=== PATIENT | female | born 1990 | race Caucasian/White ===

== ENCOUNTER 2024-08-29 08:36 | Outpatient (CLI) | payer OTHER, SELFPAY ==
--- NOTE | 2024-08-29 08:45 | CRLHL7_ITS ---
For Patients: As a result of the Century Cures Act, medical imaging exams and procedure reports are released immediately into your electronic medical record. You may view this report before your referring provider. If you have questions, please contact your health care provider. INDICATION: First trimester scan, establish dates. COMPARISON: None. TECHNIQUE: Real-time germain-scale imaging of the pelvis was performed. FINDINGS: Sonographic imaging demonstrates a single living intrauterine gestation. The embryo demonstrates a regular cardiac rate measuring 165 beats per minute. The embryo`s crown-rump length measurement of 4.7 cm corresponds to a gestational age of 11 weeks 3 days with a sonographic due date of 03/17/2025. There is a normal-appearing yolk sac. There are no gross abnormalities noted within the embryo at this early state of development. The gestational sac has a normal appearance. There is no evidence of a perigestational hemorrhage. The amount of fluid within the sac appears appropriate for gestational age. The cervix is closed. The myometrium appears normal. The ovaries are of normal size. Corpus luteal cyst right ovary. There are no suspicious fluid collections noted in the cul-de-sac. IMPRESSION: Normal first trimester OB ultrasound exam. Gestational age calculated at 11 weeks 3 days with a sonographic due date of 03/17/2025. Dictated by Darnell Arredondo MD @ 08/29/2024 12:11:54 PM (Electronically Signed)
== END 2024-08-29 08:37 | disposition home or self-care (01) ==
LOC: US 08:37
PROVIDERS: PCP Family Medicine; Visit Provider Advanced Practice Midwife
DX: Z34.91 Encounter for supervision of normal pregnancy, unspecified, first trimester (principal); Z3A.11 11 weeks gestation of pregnancy
CPT/HCPCS: 76801; 86703; 86706; 86803; 86850; 86900; 86901; 87086; 87340

== ENCOUNTER 2024-08-29 09:38 | Outpatient (CLI) | payer OTHER, SELFPAY | END 2024-08-29 09:39 | disposition home or self-care (01) | PROVIDERS: PCP Family Medicine; Visit Provider Advanced Practice Midwife | DX: Z34.91 Encounter for supervision of normal pregnancy, unspecified, first trimester (principal); Z3A.10 10 weeks gestation of pregnancy | CPT/HCPCS: 86592; 86703; 86704; 86706; 86762; 86787; 86803; 86850; 86900; 86901; 87086; 87340; 87491; 87591 ==

== ENCOUNTER 2024-08-31 17:53 | Emergency (ER) | payer OTHER, SELFPAY ==
[2024-08-31 17:57] VITALS: BP 104/69; PULSE 90; RESP 18; TEMP 37.1; O2SAT 98; BMI 18.4
--- NOTE | 2024-08-31 18:08 | CRLHL7_ITS ---
For Patients: As a result of the Cures Act, medical imaging exams and procedure reports are released immediately into your electronic medical record. You may view this report before your referring provider. If you have questions, please contact your health care provider. INDICATION: Vaginal bleeding. Positive test. COMPARISON: Pelvic ultrasound 08/29/2024. TECHNIQUE: Real-time germain-scale imaging of the pelvis was performed transabdominally and endovaginally. FINDINGS: A single intrauterine is identified with positive heart tones at a rate of 163 beats per minute. The crown-rump length measures 49 mm, giving an estimated gestation age of 11 weeks 5 days and an estimated due date of 03/17/2025. This is consistent with clinical dates. There is a normal appearing yolk sac and gestational sac. There are 2 subchorionic hemorrhages measuring 4.4 x 1.7 x 6.2 cm and 4.3 x 2.2 x 1 cm A corpus luteum is noted on the right. The left ovary is not visualized. There is no pelvic free fluid. IMPRESSION: 1. Single intrauterine with heart tones at a rate of 163 beats per minute. 2. Two subchorionic hemorrhages with measurements provided above. Dictated by Chichi Wagner MD @ 08/31/2024 8:24:31 PM (Electronically Signed)
--- NOTE | 2024-08-31 18:09 | ED.PREGNANCY ---
HPI - General Time Seen by Provider: 18:09 Date Seen: 08/31/24 Chief complaint: Vaginal Bleeding Stated complaint: 10 weeks gestation, cramping bleeding Time Seen by Provider: 08/31/24 18:06 Source: patient and RN notes reviewed Mode of arrival: ambulatory Limitations: no limitations History of Present Illness HPI Narrative: This 33-year-old female is coming in with dark vaginal bleeding that started today while just sitting on the couch. She had an ultrasound done on August 29 with her initial OB, confirming dates. This ultrasound showed normal 1st trimester OB examination, gestational age was calculated at 11 weeks 3 days with an ultrasound due date of 03/17/2025. There were no concerning abnormalities. After the ultrasound on evening patient started having some fluid with pinkish discoloration. By Monday there was just a little darkish brownish discoloration. She has had no fevers or chills, no concerning vaginal discharge outside of this. There has been no intercourse. She has 3 other living children. She does feel some mild lower abdominal cramping with this but it is nothing significant. She is O-positive, antibody screen negative. MD Complaint: abdominal pain Patient : Yes Expected Date of Delivery: 03/17/25 Related Data : 4 Para: 3 Home Medications ?Medication ?Instructions ?Recorded ?Confirmed vitamins no.119-iron 1 tab PO DAILY 08/29/24 08/31/24 fumarate 29 mg-folic acid 1 mg tablet Allergies Allergy/AdvReac Type Severity Reaction Status Date / Time no drug allergies Allergy Mild Uncoded 08/29/24 09:43 Review of Systems Status of ROS: Reports: 6 or more systems reviewed and unremarkable except as noted in History and below [facility] Medical History (Updated 08/31/24 @ 20:39 by Aniya Gutierrez MD) History of incontinence of feces ?Z87.898 - Personal history of other specified conditions (ICD-10) Surgical History (Updated 08/30/24 @ 08:43 by Darleen Gonzalez CNM) History of vacuum extraction assisted delivery ?Z87.59 - Personal history of other complications of , childbirth and the puerperium (ICD-10) H/O wisdom tooth extraction ?K08.409 - Partial loss of teeth, unspecified cause, unspecified class (ICD-10) Family History (Updated 08/29/24 @ 10:06 by Darleen Gonzalez CNM) Maternal Grandmother Diabetes Social History (Updated 08/30/24 @ 08:32 by Darleen Gonzalez CNM) Narrative: SOCIAL Education: bachelors in education 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 Lives with: and kids Pets: 2 dogs, outdoor cats Abuse: Denies past/present Special Diet: Denies Ok with a blood transfusion: yes Culture or adventist beliefs: denies RISK FACTORS Exercise Times/wk: stretching, coaching, walking Depression/Anxiety: denies SANDY: 0 PHQ 9: 0 Seat Belt Use: Routinely Smoking: Denies past/present Alcohol/day: Denies while , rare before Caffeine: 1 cup per day Drug Use: Denies past/present Chicken Pox: Yes as a child and immunized MRSA: Denies What is your current living situation?: I presently have a place to live Problems where you live: no known problems In the past 12 months, utilities in danger of being shut off: no In past 12 months, lack of transportation kept you from medical appts, meetings, work, or getting things needed for daily living: no In the past 12 mos, have been you worried that your food would run out before you had money to buy more?: never true In the past 12 mos, the food you bought just didn't last and you didn't have money to buy more?: never true Smoking Status: Never smoker How often do you have a drink containing alcohol: never How often do you have six or more drinks on one occasion: Never AUDIT-C Alcohol total score: 0 Non-prescribed substance use: denies use How often does anyone, including family, friends and others, physically hurt you: never How often does anyone, including family, friends and others, insult or talk down to you: never How often does anyone, including family, friends and others, threaten you with harm: never How often does anyone, including family, friends and others, scream or curse at you: never Little interest or pleasure in doing things: not at all Feeling down, depressed, or hopeless: not at all Exam Const: Vital Signs, click to edit/add: Vital Signs - 24 hr 08/31/24 17:57 08/31/24 19:16 Temperature 98.8 F Pulse Rate [Pulse Oximeter] 90 74 Respiratory Rate 18 16 Blood Pressure [[facility]] 104/69 103/64 Pulse Oximetry 98 98 Oxygen Delivery Me thod Room Air Room Air Daniela is a 33-year-old female that is alert, interactive, no apparent distress but mildly anxious. Sclera clear, conjugate gaze, face atraumatic. Lungs are clear, good air entry, no wheezing or crackles. CV regular rate and rhythm no murmur. Abdomen is soft, nondistended, mild suprapubic tenderness without rebound or guarding, no organomegaly or masses. Skin visualized without rash. Patient was ambulatory into the ED of her own accord. Documenting provider has reviewed patient's vital signs: yes Course Course ED Course: We will obtain CBC for baseline hemoglobin, patient is to let us know if she has increased bleeding. She has a pad on right now and has not felt anything. She notes it is primarily coming when she gets up or wipes after using the bathroom. We will repeat an ultrasound. Reevaluation(s) Time of Reevaluation #1: 20:34 Reevaluation #1: Reviewed ultrasound report with patient, she has 2 small subchorionic hemorrhages. We discussed signs and symptoms of heavy bleeding and need for return. Otherwise, follow up with OB next week. Vital Signs Vital signs: Initial Vital Signs Temperature 98.8 F 08/31/24 17:57 Temperature Source Temporal Artery Scan 08/31/24 17:57 Pulse Rate 90 08/31/24 17:57 Respiratory Rate 18 08/31/24 17:57 Blood Pressure 104/69 08/31/24 17:57 Blood Pressure Mean 80 08/31/24 17:57 Pulse Oximetry 98 08/31/24 17:57 Oxygen Delivery Method Room Air 08/31/24 17:57 Vital Signs Temperature 98.8 F 08/31/24 17:57 Pulse Rate 90 08/31/24 17:57 Respiratory Rate 18 08/31/24 17:57 Blood Pressure 104/69 08/31/24 17:57 Pulse Oximetry 98 08/31/24 17:57 Oxygen Delivery Method Room Air 08/31/24 17:57 Temperature 98.8 F 08/31/24 17:57 Pulse Rate 74 10/12/24 19:16 Respiratory Rate 16 08/31/24 19:16 Blood Pressure 103/64 08/31/24 19:16 Pulse Oximetry 98 08/31/24 19:16 Oxygen Delivery Method Room Air 08/31/24 19:16 Medications Administered Medications: Discontinued Medications Generic Name Dose Route Start Last Admin Trade Name Vitaliy PRN Reason Stop Dose Admin Acetaminophen 1,000 mg 08/31/24 19:40 08/31/24 19:43 Acetaminophen 500 Mg Tablet PO 08/31/24 19:41 1,000 mg ONCE ONE Administration MDM - OB/Uterine Contractions Lab Data Attestation: I reviewed the patient's lab results. Lab results narrative: Hemoglobin was 13.2 on 08/29/2024. Labs: Lab Results 08/31/24 Range/Units 18:23 WBC 6.36 (4.50-11.00) K/uL RBC 4.47 (4.00-5.20) m/uL Hgb 11.9 L (12.0-16.0) gm/dL Hct 36.4 (33.0-51.0) % MCV 81 (80-100) fL MCH 27 (26-34) pg MCHC 33 (32-36) gm/dL RDW Coeff of Gianna 13.0 (11.5-15.5) % Plt Count 182 (140-440) K/uL Neut % (Auto) 69.8 (42.0-72.0) % Lymph % (Auto) 15.3 L (20-44) % Mingo % (Auto) 12.1 H (0.0-11.0) % Eos % (Auto) 1.9 (0.0-7.0) % Baso % (Auto) 0.6 (0.0-3.0) % Neut # (Auto) 4.44 (1.7-7.0) K/uL Lymph # (Auto) 1.00 (0.90-2.90) K/uL Mingo # (Auto) 0.80 (0.00-0.90) K/UL Eos # (Auto) 0.12 (0.00-0.50) K/uL Baso # (Auto) 0.04 (0.00-0.30) K/uL Abs Immat Gran (auto) 0.02 (0.00-0.30) K/uL Imm/Tot Granulo (auto) 0.3 % Discharge Plan Discharge Clinical Impression: Subchorionic hemorrhage in first trimester Patient Disposition: Home, Self-Care Condition: Stable Instructions: Subchorionic Hemorrhage (ED) Additional Instructions: Please call OB clinic next week to get a follow-up visit. In the meantime, nothing in the vagina. If you develop heavy bleeding as reviewed, please return to the ER for further evaluation. Recommend no strenuous/limited activity until further advised by OB. Activity Level: No strenuous activity Prescriptions: No Action PNV 119-iron fum-folic acid 29 mg iron- 1 mg tablet 1 tab PO DAILY Follow Up/Referrals: Karena Caraballo MD [Primary Care Provider] - Stand Alone Forms: [employer] Info Instructions
[2024-08-31 18:29] LABS: Basophils Absolute Auto 0.04 K/uL (0.00-0.30); Basophils Percent Auto 0.6 % (0.0-3.0); Eosinophils Absolute Auto 0.12 K/uL (0.00-0.50); Eosinophils Percent Auto 1.9 % (0.0-7.0); Hematocrit 36.4 % (33.0-51.0); Hemoglobin* 11.9 gm/dL (12.0-16.0); Immature Granulocytes Abs Auto 0.02 K/uL (0.00-0.30); Immature Granulocytes Pct Auto 0.3 %; Lymphocytes Percent Auto 15.3 % (20-44); Mean Corpuscular HGB Conc 33 gm/dL (32-36); Mean Corpuscular Hemoglobin 27 pg (26-34); Mean Corpuscular Volume 81 fL (80-100); Monocytes Percent Auto 12.1 % (0.0-11.0); Neutrophils Absolute Auto 4.44 K/uL (1.7-7.0); Neutrophils Percent Auto 69.8 % (42.0-72.0); Platelet Count* 182 K/uL (140-440); Red Blood Count 4.47 m/uL (4.00-5.20); White Blood Count* 6.36 K/uL (4.50-11.00)
[2024-08-31 18:31] LABS: Slide Review Reflex No
[2024-08-31 19:16] VITALS: BP 103/64; PULSE 74; RESP 16; O2SAT 98
[2024-08-31] MEDS: ACETAMINOPHEN 500 MG TABLET 1000 MG PO (19:43)
[2024-08-31 20:46] VITALS: BP 110/70; PULSE 71; RESP 16; TEMP 37.1; O2SAT 98
== END 2024-08-31 20:46 | disposition home or self-care (01) ==
PROVIDERS: Emergency Provider Family Medicine; PCP Family Medicine
DX: O20.8 Other hemorrhage in early pregnancy (principal); Z3A.10 10 weeks gestation of pregnancy
CPT/HCPCS: 36415; 76815; 85025; 99283; 99284; A9270

== ENCOUNTER 2024-11-05 10:55 | Outpatient (CLI) | payer OTHER, SELFPAY ==
--- NOTE | 2024-11-05 11:15 | CRLHL7_ITS ---
For Patients: As a result of the 21st Century Cures Act, medical imaging exams and procedure reports are released immediately into your electronic medical record. You may view this report before your referring provider. If you have questions, please contact your health care provider. OB ULTRASOUND CLINICAL HISTORY: Anatomy survey. COMPARISON: 08/31/2024. BEN by US: 03/23/2025. GA: 20 w, 2 d. FINDINGS: position: Multiple positions. Cervix: Visualized. Technique: Transabdominal. Length of closed cervix: 3.8 cm. Placenta/cord: Anterior. Technique: Transabdominal. Placenta tip to internal OS: 12.1 cm. Umbilical Cord: 3-vessel cord. Placenta insertion: Central. Amniotic Fluid: 4.9 cm SDP (greater than/equal to: 2- less than 8 cm). SURVEY: Observed Structures Cerebellum: Yes. 2.2cm; 22 w 1 d. Cisterna Magna: Yes. 2.9 mm. Nuchal Fold: Yes. 4.1 mm. Lateral Ventricle: Yes. 6.3 mm. CSP: Yes. Midline Falx: Yes. Choroid Plexus: Yes. Spine: Yes. Stomach: Yes. Abd Cord Insertion: Yes. Urinary Bladder: Yes. Kidneys: Yes. Diaphragm: Yes. Nose/lips: Yes. Orbital view: Yes. Profile: Yes. Upper Extremities: Yes. Lower Extremities: Yes. Hands: Yes. Feet: Yes. Four-Chamber Heart: Yes. LVOT: Yes. RVOT: Yes. 3VV: Yes. 3VTV: Yes. BPD: 4.8 cm. 20 w 4 d, 59.5%. HC: 18.6 cm. 20 w 6 d, 69.9%. AC: 17.4 cm. 22 w 2 d, 94.4%. FL: 3.2 cm. 19 w 6 d, 28.2%. FL/AC: 18.3%. HC/AC Ratio: 1.07. Heart rate: 163 beats per minute. age by this US: 21 w 1 d. BEN by this US: 03/17/2025. EFW: 403.8 g. Weight: 14 oz. Percentile by BEN: 89.0%. IMPRESSION: 1. Estimated weight is at the 89th percentile. Abdominal circumference 94th percentile. 2. Normal anatomic survey. Az Castillo M.D. Body/Diagnostic Radiologist [email or web address] SHANE/nakul mota/Dictated by: Az Castillo MD @ 11/06/2024 9:09:00 AM (Electronically Signed)
== END 2024-11-05 10:56 | disposition home or self-care (01) ==
LOC: US 10:55
PROVIDERS: PCP Family Medicine; Visit Provider Advanced Practice Midwife
DX: Z34.92 Encounter for supervision of normal pregnancy, unspecified, second trimester (principal); Z3A.20 20 weeks gestation of pregnancy
CPT/HCPCS: 76805

== ENCOUNTER 2025-01-02 14:06 | Outpatient (CLI) | payer OTHER, SELFPAY | END 2025-01-02 14:07 | disposition home or self-care (01) | LOC: NFLDREF 14:10 | PROVIDERS: PCP Family Medicine; Visit Provider Advanced Practice Midwife | DX: Z34.93 Encounter for supervision of normal pregnancy, unspecified, third trimester (principal); Z3A.28 28 weeks gestation of pregnancy | CPT/HCPCS: 86592 ==

== ENCOUNTER 2025-01-07 08:29 | Outpatient (CLI) | payer OTHER, SELFPAY | END 2025-01-07 08:30 | disposition home or self-care (01) | LOC: NFLDREF 01-11 02:34 | PROVIDERS: PCP Family Medicine; Referring Provider Family Medicine; Visit Provider Advanced Practice Midwife | DX: R73.09 Other abnormal glucose (principal) | CPT/HCPCS: 82951; 82952 ==

== ENCOUNTER 2025-01-14 23:45 | Outpatient (CLI) | payer OTHER, SELFPAY ==
[2025-01-14 23:59] VITALS: BP 105/60; PULSE 76; PULSE 77; TEMP 36.6; O2SAT 98
[2025-01-15 00:23] LABS: Appearance Urine Cloudy (Clear); Bilirubin Urine Negative (Negative); Blood Urine 2+ (Negative); Color Urine Yellow (Yellow); Glucose Urine Negative (Negative); Ketones Urine Trace (Negative); Leukocyte Esterase Urine Negative (Negative); Nitrite Urine Negative (Negative); Protein Urine Negative (Negative); Urobilinogen Urine 0.2 (0.2-1.0)
[2025-01-15 00:32] LABS: Amorphous Sediment Urine Many; Bacteria Urine Moderate; Squamous Epithelial Cell Urine Few (None-Few)
--- NOTE | 2025-01-15 00:56 | P.OBLDTN_ITS ---
OB - Triage/Final Diagnosis Visit Information Date Seen: 01/15/25 Date of evaluation: 01/15/25 Narrative: Daniela is a 34 year old 4 para 3 at 30.3 weeks gestation by first trimester ultrasound, who presents with increasing pelvic pressure and pain. She noticed symptoms starting around 1200pm starting with some sharp right SI joint pain and then progressively over the evening this increased in intensity along with low back pain and worsening pelvic pressure. On arrival she had so much discomfort that she needed to be brought to the unit in a wheelchair. By the time she was seen by myself she was more comfortable and not complaining of pain, then had another episode of pain causing her to feel shaky with increased pelvic pressure this resolved in approximately 20 minutes.. She denies vaginal discharge or irritation, and has had no bleeding. She is oswaldo on the monitor and they palpate mild. Cervix is closed and not effaced. After an IV fluid bolus she was able to void a large amount and contractions have now spaced. Her pain has resolved and she reports feeling so much better. Initial report of kidneys and bladder from [facility] shows right hydronephrosis and debris in the bladder. During exam she had a large amount of urine in the bladder so got up and voided. Then the hydronephrosis on the right was less and bladder debris was smaller as well. She scanned approximately 600ml in bladder prior to void and approximately 90ml after void. Reviewed reasons to return with patient, follow up in clinic for routine OB visit tomorrow. Will plan to treat for UTI until culture results back. Encouraged increased oral hydration at home, may take Tylenol for pain. Reason for evaluation: threatened labor Evaluation Cervical dilation (cm): 0 Cervical effacement (%): 0 Laboratory results: Laboratory Tests 01/15/25 01/15/25 Range/Units 00:40 00:10 Urine Color Yellow (Yellow) Urine Appearance Cloudy A (Clear) Urine pH 7.0 (5.0-8.5) Ur Specific [place] 1.020 (1.000-1.030) Urine Protein Negative (Negative) Urine Glucose (UA) Negative (Negative) Urine Ketones Trace A (Negative) Urine Blood 2+ A (Negative) Urine Nitrite Negative (Negative) Urine Bilirubin Negative (Negative) Urine Urobilinogen 0.2 (0.2-1.0) Ur Leukocyte Esterase Negative (Negative) Urine RBC 10-25 A (0-2) Urine WBC 2-5 (0-5) Ur Squamous Epith Cells Few (None-Few) Amorphous Sediment Many A (None) Urine Bacteria Moderate A (None) Vaginal Trichomonas Pending Vaginal Yeast Pending Vaginal Clue Cells Pending Fibronectin Pending Vital signs: Vital Signs - 24 hr 01/14/25 23:59 01/14/25 23:59 Temperature 97.9 F Pulse Rate 76 Blood Pressure 105/60 Pulse Oximetry 98 Fetus (Single) Heart Rate Baseline: 140 [facility] Variability: Moderate (6-25) Monitor Accelerations: Present Monitor Decelerations: None Station: -3 Final Diagnosis (1) Kidney stone complicating : Status: Acute
[2025-01-15 01:01] LABS: Clue Cells <20% Clue Cells Seen (None Seen); Trichomonas No Trichomonas Seen (None Seen); Yeast No Yeast Seen (None Seen)
[2025-01-15 01:27] LABS: Fetal Fibronectin* Negative (Negative)
[2025-01-15 01:55] LABS: Albumin* 3.8 g/dL (3.3-5.0); Chloride* 102 mmol/L (96-114); Sodium* 134 mmol/L (135-149)
[2025-01-15] MEDS: ACETAMINOPHEN 500 MG TABLET 1000 MG PO (01:55)
[2025-01-15] MEDS: LACTATED RINGERS 1000 ML 1,000 ML IV (01:55)
[2025-01-15 01:56] LABS: Potassium* 3.6 mmol/L (3.6-5.1)
[2025-01-15 01:58] LABS: Alkaline Phosphatase* 115 U/L (40-150); Anion Gap 10 mEq/L (7-15); Aspartate Amino Transferase* 17 U/L (12-35); Bilirubin Total* 0.3 mg/dL (0.1-1.5); Blood Urea Nitrogen* 11 mg/dL (5-24); Carbon Dioxide* 22 mmol/L (20-32); Creatinine* 0.5 mg/dL (0.5-1.5); Estimated Glomerular Filt Rate 128 ml/min; Glucose* 102 mg/dL (60-115); Total Protein* 7.2 g/dL (6.0-8.3)
[2025-01-15 01:59] LABS: Alanine Aminotransferase* 12 U/L (4-35)
[2025-01-15] MEDS: NITROFURANTOIN MONOHYD MACRO 100 MG CAPSULE PO (02:31)
--- NOTE | 2025-01-15 03:44 | PC.OBNST ---
NST Note NST Note Start: 01/14/25 23:54 Freq: ONCE Status: Active Protocol: Document 01/15/25 03:42 TEREZAIGOR (Rec: 01/15/25 03:44 ALBERT Desktop) NST Note 4 Para (# of births) 3 EDC 03/23/25 Gestational Age In Weeks & Days 30 Weeks & 3 Days Patient Presented with Complaint(s) of Contractions/cramping,Pain If Pain, describe location pelvic pressure, low back/hip pain Reactive Yes Appropriate for Gestational Age Yes SHUBHAM hCi, RN Date 01/15/25 Reactive Yes Appropriate for Gestational Age Yes SHUBHAM Mensah RN Date 01/15/25 OB NST charge Yes Complete NST Note via Write Note Yes The provider's electronic signature indicates the NST is reactive/appropriate for gestational age. *Note to provider: If an addendum is required, open the patient's chart and click on the note under the Nurse/Allied Health tab.
== END 2025-01-15 03:40 | disposition home or self-care (01) ==
LOC: OB OUT 23:45 → OB 23:46
PROVIDERS: PCP Family Medicine; Visit Provider Advanced Practice Midwife
DX: O99.891 Other specified diseases and conditions complicating pregnancy (principal); N20.0 Calculus of kidney; Z3A.34 34 weeks gestation of pregnancy
CPT/HCPCS: 36415; 59025; 76770; 80053; 81001; 84112; 87086; 87210; G0463; A9270; J7120

== ENCOUNTER 2025-01-16 07:33 | Observation (INO) | payer OTHER, SELFPAY ==
--- OUTSIDE RECORDS SUMMARY | 2025-01-16 07:36 | XMS_ITS | Clinical Summary ---
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 Role Phone Karena Caraballo MD Primary Care Provi simi Social History Tobacco Use Types Packs/Day Years Used Date Smoking Tobacco: Never Assessed Comments Unknown Sex and Gender Information Value Date Recorded Sex Assigned at Not on file Legal Sex Female 11:39 AM CDT Gender Identity Not on file Sexual Orientation Not on file Plan of Treatment Not on file Insurance [facility] Care Teams Spar Machine Operator Helper Relationship Specialty Start Date End Date Karena Caraballo MD [address] [place] [id number] PCP - General Family Practice 02/10/22
[2025-01-16 07:42] VITALS: BP 104/71; PULSE 88; RESP 20; TEMP 36.8; O2SAT 99; BMI 21.6
[2025-01-16 08:03] LABS: Bilirubin Urine Negative (Negative); Blood Urine Negative (Negative); Color Urine Yellow (Yellow); Glucose Urine Negative (Negative); Ketones Urine 1+ (Negative); Leukocyte Esterase Urine 1+ (Negative); Nitrite Urine Negative (Negative); Protein Urine 1+ (Negative); Urobilinogen Urine 0.2 (0.2-1.0); pH Urine 8.5 (5.0-8.5)
[2025-01-16 08:09] LABS: Appearance Urine Slightly Cloudy (Clear)
[2025-01-16 08:10] LABS: Bacteria Urine Moderate; RBC Urine 0-2 (0-2); Squamous Epithelial Cell Urine Many (None-Few)
--- NOTE | 2025-01-16 08:15 | ED.GENADULT ---
HPI - General Adult General Date Seen: 01/16/25 Chief complaint: Flank Pain Stated complaint: 30 weeks , kidney stone pain Time Seen by Provider: 01/16/25 08:07 History of Present Illness HPI narrative: Patient is a 34-year-old woman who is at about 30 and half weeks. Seen yesterday in women's health for right low back pain urinary urgency and nausea. She had a workup including an ultrasound which showed hydronephrosis and some debris in the bladder. Urinalysis yesterday showed 10-25 red cells and some bacteria but no significant white blood cells. Cultures pending. She had fluids and felt improved. Pain has returned and is more severe associated with nausea few episodes of vomiting and some chills although no fevers. She feels like the pain is setting off contractions as well. No bleeding. Related Data Home Medications ?Medication ?Instructions ?Recorded ?Confirmed vitamins no.119-iron 1 tab PO DAILY 08/29/24 01/16/25 fumarate 29 mg-folic acid 1 mg tablet ferrous sulfate 1 tab PO .Twice weekly 01/15/25 01/16/25 Previous Rx's ?Medication ?Instructions ?Recorded nitrofurantoin 100 mg PO Q12H 5 days #10 caps 01/15/25 monohydrate/macrocrystals 100 mg capsule (Macrobid) Allergies Allergy/AdvReac Type Severity Reaction Status Date / Time No Known Drug Allergies Allergy Verified 01/16/25 07:49 Review of Systems Status of ROS: Reports: 6 or more systems reviewed and unremarkable except as noted in History and below [facility] Medical History History of incontinence of feces ?Z87.898 - Personal history of other specified conditions (ICD-10) Surgical History History of vacuum extraction assisted delivery ?Z87.59 - Personal history of other complications of , childbirth and the puerperium (ICD-10) H/O wisdom tooth extraction ?K08.409 - Partial loss of teeth, unspecified cause, unspecified class (ICD-10) Family History Maternal Grandmother Diabetes Social History Narrative: SOCIAL Education: bachelors in education 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[employer] , 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 Lives with: and kids Pets: 2 dogs, outdoor cats Abuse: Denies past/present Special Diet: Denies Ok with a blood transfusion: yes Culture or methodist beliefs: denies RISK FACTORS Exercise Times/wk: stretching, coaching, walking Depression/Anxiety: denies SANDY: 0 PHQ 9: 0 Seat Belt Use: Routinely Smoking: Denies past/present Alcohol/day: Denies while , rare before Caffeine: 1 cup per day Drug Use: Denies past/present Chicken Pox: Yes as a child and immunized MRSA: Denies What is your current living situation?: I presently have a place to live Problems where you live: no known problems In the past 12 months, utilities in danger of being shut off: no In past 12 months, lack of transportation kept you from medical appts, meetings, work, or getting things needed for daily living: no In the past 12 mos, have been you worried that your food would run out before you had money to buy more?: never true In the past 12 mos, the food you bought just didn't last and you didn't have money to buy more?: never true Smoking Status: Never smoker How often do you have a drink containing alcohol: never How often do you have six or more drinks on one occasion: Never AUDIT-C Alcohol total score: 0 Non-prescribed substance use: denies use How often does anyone, including family, friends and others, physically hurt you: never How often does anyone, including family, friends and others, insult or talk down to you: never How often does anyone, including family, friends and others, threaten you with harm: never How often does anyone, including family, friends and others, scream or curse at you: never Exam Narrative: Exam Narrative: Vital signs as noted above. In general, an alert, well-appearing woman. She looks uncomfortable. Head: Normocephalic, atraumatic. Eyes: Pupils are equal reactive. Extraocular movements are full. Conjunctivae are normal. ENT: Mucous membranes are moist. Throat is normal. Neck: Supple without lymphadenopathy. Heart: Regular rate and rhythm. No murmur or rub. Lungs: Clear bilaterally. No increased work of breathing, crackles or wheezes. Abdomen: Soft and nontender. Gravid. Extremities: Well perfused. No edema. No calf tenderness. Pulses intact. Neurologic: Patient is alert and oriented to person and place. Speech is fluent. Face is symmetric. Moves all extremities equally. Affect: Normal. Skin: Warm and dry. Well perfused. Const: Vital Signs, click to edit/add: Vital Signs - 24 hr 01/16/25 07:42 01/16/25 09:54 Temperature 98.2 F 98.9 F Pulse Rate [Pulse Oximeter] 88 72 Respiratory Rate 20 18 Blood Pressure [Ri ght Upper Arm] 104/71 116/72 Pulse Oximetry 99 98 Oxygen Delivery Me thod Room Air Room Air Course Course ED Course: At this point I think it makes sense to do CT scan and see if she has hydronephrosis secondary to a kidney stone or related simply to . Urine culture is pending, she does have urinary urgency but at this point no other clear indicators of infection. She is afebrile, vital signs are normal. Blood work and repeat UA pending, I do not think she needs urgent treatment for sepsis, consider pyelonephritis, kidney stone, renal colic from hydronephrosis, labor, appendicitis, among others. Patient was evaluated by [facility] with NST, cervical check, findings are reassuring. Urinalysis here today does show 10-25 white cells, no significant red cells today. White blood cell count in the serum is mildly elevated at 12.8. Metabolic panel is notable for CO2 of 19. LFTs are normal. Lipase is normal. CT scan by my review showed fairly significant hydronephrosis on the right and a 5 mm stone near the UVJ. Final radiology read discussed with the Radiology who agrees. She does have some other stones in the kidneys, no other significant findings. Case discussed with Dr. Quintero, was on-call for Urology at the [facility]. He feels that in the absence of fever, that for now management here with IV antibiotics, pain control, hydration and trending of labs would be appropriate. He would like to avoid a procedure if possible given her . Discussed briefly with the nurse deicer inspector pneumatic, also discussed with the hospitalist service. Patient will be admitted to the hospitalist service with deicer inspector pneumatic to consult. She did have ongoing pain despite the morphine, had ongoing vomiting as well so she has now had some Dilaudid as well as Reglan, will keep working on getting her pain under better control. Vital signs remain reassuring. Vital Signs Vital signs: Initial Vital Signs Temperature 98.2 F 01/16/25 07:42 Temperature Source Temporal Artery Scan 01/16/25 07:42 Pulse Rate 88 01/16/25 07:42 Respiratory Rate 20 01/16/25 07:42 Blood Pressure 104/71 01/16/25 07:42 Blood Pressure Mean 82 01/16/25 07:42 Blood Pressure Position Sitting 01/16/25 07:42 Pulse Oximetry 99 01/16/25 07:42 Oxygen Delivery Method Room Air 01/16/25 07:42 Vital Signs Temperature 98.2 F 01/16/25 07:42 Pulse Rate 88 01/16/25 07:42 Respiratory Rate 20 01/16/25 07:42 Blood Pressure 104/71 01/16/25 07:42 Pulse Oximetry 99 01/16/25 07:42 Oxygen Delivery Method Room Air 01/16/25 07:42 Temperature 98.9 F 01/16/25 09:54 Pulse Rate 72 01/16/25 09:54 Respiratory Rate 18 01/16/25 09:54 Blood Pressure 116/72 01/16/25 09:54 Pulse Oximetry 98 01/16/25 09:54 Oxygen Delivery Method Room Air 01/16/25 09:54 Medications Administered Medications: Discontinued Medications Generic Name Dose Route Start Last Admin Trade Name Freq PRN Reason Stop Dose Admin Hydromorphone HCl 0.5 mg 01/16/25 09:57 01/16/25 11:03 Hydromorphone 0.5 Mg/0.5 Ml Inj IVP 01/16/25 09:58 0.5 mg ONCE ONE Administration Sodium Chloride 500 mls @ 500 mls/hr 01/16/25 08:12 01/16/25 10:06 0.9 % Sodium Chloride 500 Ml IV 01/16/25 09:11 Infused .Q1H ONE Infusion Metoclopramide HCl 10 mg/ 102 mls @ 306 mls/hr 01/16/25 09:57 01/16/25 11:07 Sodium Chloride IVPB 01/16/25 09:58 306 mls/hr ONCE ONE Administration Morphine Sulfate 4 mg 01/16/25 08:12 01/16/25 08:34 Morphine 4 Mg/Ml Inj IVP 01/16/25 08:13 4 mg ONCE ONE Administration Ondansetron HCl 4 mg 01/16/25 08:12 01/16/25 08:33 Ondansetron 2 Mg/Ml Inj IVP 01/16/25 08:13 4 mg ONCE ONE Administration Medical Decision Making Lab Data Labs: Lab Results 01/16/25 01/16/25 Range/Units 07:53 08:21 WBC 12.79 H (4.50-11.00) K/uL RBC 4.14 (4.00-5.20) m/uL Hgb 10.8 L (12.0-16.0) gm/dL Hct 33.6 (33.0-51.0) % MCV 81 (80-100) fL MCH 26 (26-34) pg MCHC 32 (32-36) gm/dL RDW Coeff of Gianna 12.9 (11.5-15.5) % Plt Count 150 (140-440) K/uL Neut % (Auto) 83.3 H (42.0-72.0) % Lymph % (Auto) 9.7 L (20-44) % [place] % (Auto) 5.4 (0.0-11.0) % Eos % (Auto) 0.3 (0.0-7.0) % Baso % (Auto) 0.4 (0.0-3.0) % Neut # (Auto) 10.70 H (1.7-7.0) K/uL Lymph # (Auto) 1.20 (0.90-2.90) K/uL [place] # (Auto) 0.70 (0.00-0.90) K/UL Eos # (Auto) 0.00 (0.00-0.50) K/uL Baso # (Auto) 0.10 (0.00-0.30) K/uL Abs Immat Gran (auto) 0.10 (0.00-0.30) K/uL Imm/Tot Granulo (auto) 0.9 % Sodium 133 L (135-149) mmol/L Potassium 3.8 (3.6-5.1) mmol/L Chloride 103 (96-114) mmol/L Carbon Dioxide 19 L (20-32) mmol/L Anion Gap 11 (7-15) mEq/L BUN 7 (5-24) mg/dL Creatinine 0.5 (0.5-1.5) mg/dL Estimated Creat Clear 139.49 Estimated GFR 128 ml/min Glucose 97 (60-115) mg/dL Calcium 9.0 (8.4-10.6) mg/dL Total Bilirubin 0.3 (0.1-1.5) mg/dL Direct Bilirubin 0.1 (0.0-0.5) mg/dL AST 19 (12-35) U/L ALT 13 (4-35) U/L Alkaline Phosphatase 111 (40-150) U/L Total Protein 7.4 (6.0-8.3) g/dL Albumin 4.0 (3.3-5.0) g/dL Lipase 43 (23-300) U/L Urine Color Yellow (Yellow) Urine Appearance Slightly Cloudy A (Clear) Urine pH 8.5 (5.0-8.5) Ur Specific [place] 1.020 (1.000-1.030) Urine Protein 1+ A (Negative) Urine Glucose (UA) Negative (Negative) Urine Ketones 1+ A (Negative) Urine Blood Negative (Negative) Urine Nitrite Negative (Negative) Urine Bilirubin Negative (Negative) Urine Urobilinogen 0.2 (0.2-1.0) Ur Leukocyte Esterase 1+ A (Negative) Urine RBC 0-2 (0-2) Urine WBC 10-25 A (0-5) Ur Squamous Epith Cells Many A (None-Few) Urine Bacteria Moderate A (None) Imaging Data CT scan - abdomen: Attestation: I have reviewed the pertinent imaging results. Radiologist's impression: Patient: Daniela Barragan MR#: [id number] : 1990 Acct:[id number] Loc: ED Service Date: 01/16/[address]: Ordering Physician: Beatriz Mathew M.D. Date of Service: 01/16/25 Procedure(s): CT abdomen pelvis wo con Accession Number(s): [id number] cc: Beatriz Mathew M.D.; Karena Caraballo M.D.~ For Patients: As a result of the Century Cures Act, medical imaging exams and procedure reports are released immediately into your electronic medical record. You may view this report before your referring provider. If you have questions, please contact your health care provider. INDICATION: Right flank pain. Hydronephrosis and debris in bladder on recent ultrasound. Nausea and vomiting. Thirty weeks . TECHNIQUE: CT abdomen and pelvis acquired without contrast. COMPARISON: Ultrasound 01/15/2025. FINDINGS: Lower chest: Lung bases are clear. No pleural or pericardial effusions. Liver: Unremarkable. Spleen: Unremarkable. Pancreas: Unremarkable. Gallbladder and bile ducts: No calcified stones or biliary ductal dilatation. Kidneys: Moderate to severe right hydroureteronephrosis has increased. There is a 5 mm stone in the distal right ureter near the ureterovesicular junction. No other ureteral stone evident. Additional bilateral nonobstructing nephrolithiasis measuring up to 4 mm on the right. Adrenal glands: Unremarkable. GI tract: No evidence of obstruction or acute appendicitis. The appendix is not discretely identified. No secondary findings to suggest appendicitis. No free air or free fluid. Lymph nodes: No pathologic lymphadenopathy. Vascular structures: Unremarkable. Pelvic Organs: Enlarged uterus with intrauterine in cephalic presentation. No complicating feature evident by CT. Bones: No acute or suspicious osseous abnormality. IMPRESSION: 1. Worsening moderate to severe right hydroureteronephrosis, with 5 mm distal ureteral stone near the ureterovesicular junction. 2. Bilateral nonobstructing nephrolithiasis. 3. Intrauterine in cephalic presentation. No complicating feature evident by CT. Discussed with Dr. Mathew by telephone at 10:20 a.m. on 01/16/2025. Dictated by Aguila Bills MD @ 01/16/2025 10:20:49 AM Please note that all CT scans at this facility use dose modulation, iterative reconstruction, and/or weight-based dosing when appropriate to reduce radiation dose to as low as reasonably achievable. Dictated by: Aguila Bills MD @ 01/16/2025 10:21:25 Discharge Plan Discharge Clinical Impression: Kidney stone complicating Patient Disposition: Admitted As Observation
[2025-01-16 08:28] LABS: Basophils Percent Auto 0.4 % (0.0-3.0); Eosinophils Percent Auto 0.3 % (0.0-7.0); Hematocrit 33.6 % (33.0-51.0); Hemoglobin* 10.8 gm/dL (12.0-16.0); Immature Granulocytes Pct Auto 0.9 %; Lymphocytes Percent Auto 9.7 % (20-44); Mean Corpuscular HGB Conc 32 gm/dL (32-36); Mean Corpuscular Hemoglobin 26 pg (26-34); Mean Corpuscular Volume 81 fL (80-100); Monocytes Percent Auto 5.4 % (0.0-11.0); Neutrophils Percent Auto 83.3 % (42.0-72.0); Platelet Count* 150 K/uL (140-440); RDW Coefficient of Variation % 12.9 % (11.5-15.5); Red Blood Count 4.14 m/uL (4.00-5.20); White Blood Count* 12.79 K/uL (4.50-11.00)
[2025-01-16 08:29] LABS: Slide Review Reflex No
[2025-01-16] MEDS: ONDANSETRON 2 MG/ML inj 4 MG IVP (08:33)
[2025-01-16] MEDS: 0.9 % SODIUM CHLORIDE 500 ML 500 ML IV (08:33)
[2025-01-16] MEDS: MORPHINE 4 MG/ML INJ IVP (08:34)
[2025-01-16 08:40] LABS: Chloride* 103 mmol/L (96-114); Sodium* 133 mmol/L (135-149)
[2025-01-16 08:41] LABS: Potassium* 3.8 mmol/L (3.6-5.1)
[2025-01-16 08:44] LABS: Anion Gap 11 mEq/L (7-15); Aspartate Amino Transferase* 19 U/L (12-35); Bilirubin Direct* 0.1 mg/dL (0.0-0.5); Bilirubin Total* 0.3 mg/dL (0.1-1.5); Blood Urea Nitrogen* 7 mg/dL (5-24); Carbon Dioxide* 19 mmol/L (20-32); Creatinine* 0.5 mg/dL (0.5-1.5); Est. Creatinine Clearance* 139.49; Estimated Glomerular Filt Rate 128 ml/min; Glucose* 97 mg/dL (60-115); Total Protein* 7.4 g/dL (6.0-8.3)
[2025-01-16 08:45] LABS: Alanine Aminotransferase* 13 U/L (4-35); Alkaline Phosphatase* 111 U/L (40-150); Lipase* 43 U/L (23-300)
[2025-01-16 09:54] VITALS: BP 116/72; PULSE 72; RESP 18; TEMP 37.2; O2SAT 98
[2025-01-16] MEDS: HYDROmorphone 0.5 mg/0.5 ml inj IVP ×4 (11:03→21:45)
[2025-01-16] MEDS: METOCLOPRAMIDE HCL 10 MG in 0.9 % SODIUM CHLORIDE 100 ml 100 ML 306 MG IVPB (11:07)
[2025-01-16 11:45] VITALS: BP 112/76; PULSE 69; RESP 18; TEMP 36.8; O2SAT 96; BMI 21.2
--- NOTE | 2025-01-16 11:52 | PM.OBCN1 ---
OB - CN: HPI Date of Consult Date Seen: 01/16/25 Consult date: 01/16/25 Requesting Physician: Dr Henry Primary Care Provider: Karena Caraballo MD Consult Narrative Narrative: The patient is a 34 year old G 4 P 2103 at 34w4d weeks gestation that was admitted to the med/surg unit for pain management for nephrolithiasis. That is being managed by the Hopsitalist. I was asked to consult regarding the and have consulted with Dr Harmon regarding care. has thus far been complicated by anemia, low BMI. Dated by LMP confirmed by first trimester US. [id number]: [facility] #Hx Vacuum assisted delivery with 1st #Hx fecal incontinence after 3rd but believes it is related to vacuum with first. Has done PT but might want to return if symptoms resume this . # BMI 18.4 at NOB # Failed 1hr GTT 3hr GTT: passed all values # Anemia. Iron supplement started at 28wks. #kidney stones seen in triage 01/15 see US report # ?UTI- started on Macrobid 01/15 FFN neg 01/15 Cervix closed, NST reactive History of Present complications: other History History 4 Elective abortions Para 3 Spontaneous abortions Hx # Term Pregnancies Ectopic pregnancies Hx # Pregnancies Multiple births Number of Living Children 3 Past Pregnancies Del. Date GA/Weeks Outcome Route wt Inf Gender Labor Lgth Anesthesia Location Provider Compli 12/21/19 39 live - full term 8 lb 1 oz Male 17hrs none [place] 07/04/21 37 live - full term 6 lb 4 oz Female 11hrs none [place] 07/16/24 37 live - full term vaginal delivery vacuum extraction 6 lb 2 oz Male 17hrs epidural [place] Labs Blood type: O (+) positive Rubella: immune RPR/VDLR: nonreactive GBS status: unknown HBsAG: negative PFSH PFSH Medical History History of incontinence of feces ?Z87.898 - Personal history of other specified conditions (ICD-10) Surgical History History of vacuum extraction assisted delivery ?Z87.59 - Personal history of other complications of , childbirth and the puerperium (ICD-10) H/O wisdom tooth extraction ?K08.409 - Partial loss of teeth, unspecified cause, unspecified class (ICD-10) Family History Maternal Grandmother Diabetes Social History Narrative: SOCIAL Education: bachelors in education 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[employer] , 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 Lives with: and kids Pets: 2 dogs, outdoor cats Abuse: Denies past/present Special Diet: Denies Ok with a blood transfusion: yes Culture or judaism beliefs: denies RISK FACTORS Exercise Times/wk: stretching, coaching, walking Depression/Anxiety: denies SANDY: 0 PHQ 9: 0 Seat Belt Use: Routinely Smoking: Denies past/present Alcohol/day: Denies while , rare before Caffeine: 1 cup per day Drug Use: Denies past/present Chicken Pox: Yes as a child and immunized MRSA: Denies What is your current living situation?: I presently have a place to live Problems where you live: no known problems Problems where you live details: NA In the past 12 months, utilities in danger of being shut off: no In past 12 months, lack of transportation kept you from medical appts, meetings, work, or getting things needed for daily living: no In the past 12 mos, have been you worried that your food would run out before you had money to buy more?: never true In the past 12 mos, the food you bought just didn't last and you didn't have money to buy more?: never true Highest level of school completed/degree received: Bachelor's degree Smoking Status: Never smoker How often do you have a drink containing alcohol: monthly or less How many standard drinks containing alcohol do you have on a typical day: 1 or 2 How often do you have six or more drinks on one occasion: Never AUDIT-C Alcohol total score: 1 Non-prescribed substance use: denies use Caffeine: Yes (coffee) How often does anyone, including family, friends and others, physically hurt you: unable to answer How often does anyone, including family, friends and others, insult or talk down to you: unable to answer How often does anyone, including family, friends and others, threaten you with harm: unable to answer How often does anyone, including family, friends and others, scream or curse at you: unable to answer service: No Meds Home Medications and Allergies Home Medications ?Medication ?Instructions ?Recorded ?Confirmed ?Type vitamins no.119-iron 1 tab PO DAILY 08/29/24 01/16/25 History fumarate 29 mg-folic acid 1 mg tablet ferrous sulfate 1 tab PO .Twice weekly 01/15/25 01/16/25 History Allergies Allergy/AdvReac Type Severity Reaction Status Date / Time No Known Drug Allergies Allergy Verified 01/16/25 07:49 OB - H&P: Exam Physical Exam: Vital signs: Temp Pulse Resp BP Pulse Ox O2 Del Method 98.9 F 72 18 116/72 98 Room Air 01/16/25 09:54 01/16/25 09:54 01/16/25 09:54 01/16/25 09:54 01/16/25 09:54 01/16/25 09:54 Narrative: NST reactive. Baseline initially 140s, but changed to 120s briefly after MSO4 was given. Moderate variability, Accels present, no concerning decelerations. Contractions present palpating mild per nursing. Cervix dilated to fingertip per nursing. No significant change. OB - Results Labs Labs: Short CBC 01/16/25 Range/Units 08:21 WBC 12.79 H (4.50-11.00) K/uL Hgb 10.8 L (12.0-16.0) gm/dL Hct 33.6 (33.0-51.0) % Plt Count 150 (140-440) K/uL BMP 01/16/25 08:21 Sodium 133 L Potassium 3.8 Chloride 103 Carbon Dioxide 19 L BUN 7 Creatinine 0.5 Glucose 97 Calcium 9.0 Liver Function 01/16/25 Range/Units 08:21 Total Bilirubin 0.3 (0.1-1.5) mg/dL Direct Bilirubin 0.1 (0.0-0.5) mg/dL AST 19 (12-35) U/L ALT 13 (4-35) U/L Alkaline Phosphatase 111 (40-150) U/L Albumin 4.0 (3.3-5.0) g/dL Urine 01/16/25 Range/Units 07:53 Urine Color Yellow (Yellow) Urine Appearance Slightly Cloudy A (Clear) Urine pH 8.5 (5.0-8.5) Ur Specific [place] 1.020 (1.000-1.030) Urine Protein 1+ A (Negative) Urine Glucose (UA) Negative (Negative) OB - CN: A/P Assessment and Plan (1) : Status: Acute (2) Kidney stone complicating : Status: Acute Plan 34yo at 30w4d Nephrolithiasis No indication of labor NST reactive Continue care per hospitalist group for Nephrolithiasis Daily NST
--- NOTE | 2025-01-16 12:26 | PC.OBNST ---
NST Note NST Note Start: 01/16/25 09:08 Freq: ONCE Status: Active Protocol: Document 01/16/25 10:41 PORTC (Rec: 01/16/25 10:42 PORTC Desktop) NST Note 4 Para (# of births) 3 EDC 03/23/25 Gestational Age In Weeks & Days 30 Weeks & 4 Days Patient Presented with Complaint(s) of Pain,Nausea and vomiting Other Complaints Pt seen in ED for evaluation of hydronephrosis and potential presence of kidney stone Reactive Yes Appropriate for Gestational Age Yes SHUBHAM Vasques RNC Date 01/16/25 Reactive Yes Appropriate for Gestational Age Yes SHUBHAM Powers CN Date 01/16/25 OB NST charge Yes Complete NST Note via Write Note Yes The provider's electronic signature indicates the NST is reactive/appropriate for gestational age. *Note to provider: If an addendum is required, open the patient's chart and click on the note under the Nurse/Allied Health tab.
[2025-01-16] MEDS: cefTRIAXone 1 GM in 0.9 % SODIUM CHLORIDE Mini-bag 100 ML IVPB (13:19)
[2025-01-16 15:00] VITALS: BP 101/64; PULSE 64; RESP 16; RESP 18; O2SAT 95; O2SAT 97
--- NOTE | 2025-01-16 15:00 | PM.IMHP1 ---
Hospitalist- H&P: [facility] History of Present Illness Date Seen: 01/16/25 Chief complaint: 30 weeks , kidney stone pain Narrative: Daniela Barragan is a 34 year old woman 4 para 3, currently 30-31 weeks gestational, presents with the 2 day history of right flank pain. Started out as pelvic pain in then lateralize to the right. Has not had fevers, rigors, diaphoresis. Denies hematuria. Has had a sense of wanting to urinate but being unable to do so. Denies dysuria, urgency, frequency. Presented to the center 2 nights ago with these symptoms. Was thought to have stone based on history, exam, urine studies, and ultrasound findings. Was hydrated. Urinalysis demonstrated micro hematuria. No pyuria. No nitrites or leukocyte esterase. heart tones and exam normal. Discomfort resolved and she was discharged home with empiric oral antibiotic for possible UTI. After discharge from the center she returned home. Try to maintain her hydration. Right flank pain intensified. Had an episode of nausea and vomiting and ultimately came in this morning for further assessment. CT scan of abdomen and pelvis undertaken demonstrating right hydronephrosis with a 5 mm stone at the UVJ. Also has bilateral kidney stones. Continues to deny fevers, rigors, diaphoresis. Continues to deny dysuria, urgency, frequency, hematuria. Urinalysis continues to demonstrate micro hematuria plus 5-25 white blood cells per high-power field this time. Does not have systemic symptoms of UTI. Case discussed with urologist who recommended observation admission with IV fluid rehydration efforts and analgesia and antiemetic support. Should she develop systemic symptoms of UTI or pyelonephritis than try to make arrangements for transfer to a tertiary care center with urology services for urgent stone management. This was reviewed with patient and her who were agreeable and thus she is admitted to the hospital at this time. Review of Systems Status of ROS: Reports: 6 or more systems reviewed and unremarkable except as noted in History and below Narrative: Receiving appropriate cares. No complications. History of subchorionic hemorrhage in 1st trimester in the past noted. Generally healthy without any other chronic medical problems. In a healthy relationship with her , supportive family, 3 healthy children at home. Safe in her home. Does not consume alcoholic beverages. Does not utilize tobacco products. Does not use any street or recreational drugs. 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 Lives with: and kids Pets: 2 dogs, outdoor cats Abuse: Denies past/present Special Diet: Denies Ok with a blood transfusion: yes Culture or sikhism beliefs: denies RISK FACTORS Exercise Times/wk: stretching, coaching, walking Depression/Anxiety: denies SANDY: 0 PHQ 9: 0 Seat Belt Use: Routinely Smoking: Denies past/present Alcohol/day: Denies while , rare before Caffeine: 1 cup per day Drug Use: Denies past/present Chicken Pox: Yes as a child and immunized MRSA: Denies What is your current living situation?: I presently have a place to live Problems where you live: no known problems Problems where you live details: NA In the past 12 months, utilities in danger of being shut off: no In past 12 months, lack of transportation kept you from medical appts, meetings, work, or getting things needed for daily living: no In the past 12 mos, have been you worried that your food would run out before you had money to buy more?: never true In the past 12 mos, the food you bought just didn't last and you didn't have money to buy more?: never true Highest level of school completed/degree received: Bachelor's degree Smoking Status: Never smoker How often do you have a drink containing alcohol: monthly or less How many standard drinks containing alcohol do you have on a typical day: 1 or 2 How often do you have six or more drinks on one occasion: Never AUDIT-C Alcohol total score: 1 Non-prescribed substance use: denies use Caffeine: Yes (coffee) How often does anyone, including family, friends and others, physically hurt you: unable to answer How often does anyone, including family, friends and others, insult or talk down to you: unable to answer How often does anyone, including family, friends and others, threaten you with harm: unable to answer How often does anyone, including family, friends and others, scream or curse at you: unable to answer service: No Meds Home Medications and Allergies Home Medications ?Medication ?Instructions ?Recorded ?Confirmed ?Type vitamins no.119-iron 1 tab PO DAILY 08/29/24 01/16/25 History fumarate 29 mg-folic acid 1 mg tablet ferrous sulfate 1 tab PO .Twice weekly 01/15/25 01/16/25 History Allergies Allergy/AdvReac Type Severity Reaction Status Date / Time No Known Drug Allergies Allergy Verified 01/16/25 07:49 Exam Narrative: Exam Narrative: Examined patient in her hospital room. Appears comfortable no acute distress after analgesics and antiemetics. Vision and hearing are normal in adequate. Alert and oriented x4. Friendly, articulate, cooperative. No icterus or conjunctival injection. Conjugate gaze. Moist buccal mucosa. Dentition in good repair. Midline nasal septum. Neck is supple. Midline trachea. No head neck lymphadenopathy. Lungs are clear to auscultation without wheezing, rhonchi, or rales. Chest wall excursions are full. Minimal discomfort in right flank when thumping her back. Left is normal. Heart tones with regular rhythm, normal S1-S2, soft systolic murmur without gallop or rub. Abdomen with active bowel sounds, soft. . Palpable pulses upper and lower extremities. Capillary refill less than 3 seconds. No edema. No focal motor neurologic deficits. Independent transfer, station, gait. Cranial nerves 3-12 grossly normal. Const: Vital Signs, click to edit/add: Vital Signs - 24 hr 01/16/25 07:42 01/16/25 09:54 01/16/25 11:45 Temperature 98.2 F 98.9 F 98.2 F Pulse Rate [Pulse Oximeter] 88 72 Pulse Rate [Right Pulse Oximeter] 69 Respiratory Rate 20 18 18 Blood Pressure [Ri ght Arm] 112/76 Blood Pressure [Ri ght Upper Arm] 104/71 116/72 Pulse Oximetry 99 98 96 Oxygen Delivery Me thod Room Air Room Air Room Air Hospitalist - H&P: Result Labs Labs: Short CBC 01/16/25 Range/Units 08:21 WBC 12.79 H (4.50-11.00) K/uL Hgb 10.8 L (12.0-16.0) gm/dL Hct 33.6 (33.0-51.0) % Plt Count 150 (140-440) K/uL BMP 01/16/25 08:21 Sodium 133 L Potassium 3.8 Chloride 103 Carbon Dioxide 19 L BUN 7 Creatinine 0.5 Glucose 97 Calcium 9.0 Liver Function 01/16/25 Range/Units 08:21 Total Bilirubin 0.3 (0.1-1.5) mg/dL Direct Bilirubin 0.1 (0.0-0.5) mg/dL AST 19 (12-35) U/L ALT 13 (4-35) U/L Alkaline Phosphatase 111 (40-150) U/L Albumin 4.0 (3.3-5.0) g/dL Urine 01/16/25 Range/Units 07:53 Urine Color Yellow (Yellow) Urine Appearance Slightly Cloudy A (Clear) Urine pH 8.5 (5.0-8.5) Ur Specific [place] 1.020 (1.000-1.030) Urine Protein 1+ A (Negative) Urine Glucose (UA) Negative (Negative) Imaging Renal ultrasound: Radiologist's impression: IMPRESSION: 1. Moderate right-sided hydronephrosis and proximal hydroureter of uncertain etiology as calculus not definitively identified on this examination. Bilateral ureteral jets remain visualized. CT scan of abdomen and pelvis: Radiologist's impression: IMPRESSION: 1. Worsening moderate to severe right hydroureteronephrosis, with 5 mm distal ureteral stone near the ureterovesicular junction. 2. Bilateral nonobstructing nephrolithiasis. 3. Intrauterine in cephalic presentation. No complicating feature evident by CT. Assessment and Plan Assessment and plan (1) Hydronephrosis of right kidney: Problem comment: - CT scan on 01/16/2025 demonstrated the followin. Worsening moderate to severe right hydroureteronephrosis, with 5 mm distal ureteral stone near the ureterovesicular junction. 2. Bilateral nonobstructing nephrolithiasis. 3. Intrauterine in cephalic presentation. No complicating feature evident by CT. Status: Acute (2) Hydroureter on right: Problem comment: - CT scan on 01/16/2025 demonstrated the followin. Worsening moderate to severe right hydroureteronephrosis, with 5 mm distal ureteral stone near the ureterovesicular junction. 2. Bilateral nonobstructing nephrolithiasis. 3. Intrauterine in cephalic presentation. No complicating feature evident by CT. Status: Acute (3) Calculus of ureterovesical junction (UVJ): Problem comment: -obstructing 5 mm stone right UVJ per CT scan 01/16/2025 -discussed with urologists in the [facility] Emergency Department who recommended admission for observation, hydration, analgesia, antiemetic administration while straining for kidney stone Status: Acute (4) Kidney stone complicating : Problem comment: -has never been informed or knowledgeable of kidney stones in the past. This is new to her. -began Education with patient about the pathophysiology of kidney stones, evaluation measures, treatment measures, prevention measures. Status: Acute (5) : Problem comment: -will continue with labor and delivery monitoring status while in hospital Status: Acute (6) Anemia: Problem comment: -monitor Status: Acute (7) Subchorionic hemorrhage in first trimester: Problem comment: -will hold off on pharmacologic VTE prophylaxis for now and encourage patient to ambulate a minimum of twice in the morning twice in the afternoon twice in the evening and utilize sequential compression devices at bedtime while in hospital Status: Acute (8) UTI (urinary tract infection) during : Problem comment: -suspected based on urinalysis from 01/14/2025 which demonstrated micro hematuria, with urine culture negative to date -was started on nitrofurantoin empirically on 01/14/2025. Will stop this while in hospital. While awaiting urine culture results we will switch to ceftriaxone 1 g IV Q 24 hours. Status: Acute Plan 1. Discussed with patient and 2. Reviewed my impression and plans 3. Answered their questions their satisfaction 4. They are agreeable with above stated plans and recommendations 5. Patient and understand that she might be discharged from the hospital to her home without having 1st passed a stone if she is able to achieve greater level of comfort 6. Will need follow-up regarding kidney stones and if at all possible collect the current stone and submit for stone chemical analysis Total Time Spent Total Time Spent: 60 minutes
[2025-01-16] MEDS: 0.9 % SODIUM CHLORIDE 1000 ml 1,000 ML 125 ML IV (15:43)
[2025-01-16 19:00] VITALS: BP 103/66; PULSE 95; RESP 18; TEMP 36.8; O2SAT 97
--- NOTE | 2025-01-16 19:15 | PC.NURSE ---
Nursing Care Hours: [id number] Pt arrived to unit alert and oriented, calm and cooperative. Pain rated 5/10. During admission intake, pain increased to 6-7/10. Pt had episode of emesis. IV pain meds given, pt refused PO Tylenol d/t nausea and emesis, and heating pad to flank area. Allowed to rest in darkened room. Pain decreased to 1/10 and remained 2/10 rest of shift. Pt ate smoothie bowl and ordered tray without issue. Void x4. Urine strained for stones, only soft white sediment noted. VSS. OB met and talked with pt at bedside. Pt educated on what signs and symptoms to report to OB.
[2025-01-16] MEDS: ACETAMINOPHEN 325 MG TABLET 975 MG PO (19:22)
[2025-01-16] MEDS: 0.9 % SODIUM CHLORIDE 1000 ml 1,000 ML 500 ML IV (19:24)
--- NOTE | 2025-01-16 21:27 | PC.NURSE ---
Patient is wanting to discharge to home. Dr. Leigh seeing patient and will discharge home. Discharge prescription per [facility]- Oxycodone 5mg po Q4 hours as needed for pain Qty [address] Leigh. Patient has no allergies.
--- NOTE | 2025-01-16 21:40 | W.PM.CROSSCO ---
Subjective Subjective Date Seen: 01/16/25 Interval history: 34-year-old 4 para 3 at 30-31 weeks gestation admitted for right flank pain caused by an obstructing 5 mm stone at the UVJ. During the day today she has resolved her symptoms and is anxious to go home. She has had no fever. She had a urine culture 2 days ago which is negative and a repeat urine culture today which is pending. She received ceftriaxone this afternoon. I discussed in detail the management of kidney stones, complications of kidney stones and reasons to return to the emergency room for evaluation. She may pass this spontaneously without unmanageable pain. This can be managed at home. She will screen her urine at home. It may be difficult to determine if she has passed the stone if she remains asymptomatic. Outpatient followup early next week if she is doing well. Return to the emergency department for unmanageable pain or fever. If she has a fever or other serious complications of her stone she will need a urologist which will require a visit to a [facility]. Assessment and Plan Assessment and plan (1) Calculus of ureterovesical junction (UVJ): Problem comment: -obstructing 5 mm stone right UVJ per CT scan 01/16/2025 -discussed with urologists in the [facility] Emergency Department who recommended admission for observation, hydration, analgesia, antiemetic administration while straining for kidney stone Status: Acute (2) : Problem comment: -will continue with labor and delivery monitoring status while in hospital Status: Acute Plan Discharge to home for outpatient follow-up or return to the emergency department if complications or unmanageable pain. Total Time Spent Total Time Spent: 30 minutes in coordination of care and discussion of management of kidney stones and with patient and
--- NOTE | 2025-01-16 22:10 | PC.NURSE ---
End of shift report [id number]: Pleasant and cooperative with cares. Pain is well managed with current regimen. Patient voiding, urine is straw colored with sediment. Patients final urination at 2144 there was a small, hard particle in the strainer that was placed in a specimen cup and sent to lab. Patient sent home with hat, strainer and specimen cup to continue to strain urine. IV to left AC discontinued, catheter intact. Patient ambulated out of facility to ED to private care. Discharge instructions and care reviewed.
== END 2025-01-16 22:05 | disposition home or self-care (01) ==
LOC: ED 11:05 → MEDSURG 11:35
PROVIDERS: Family Medicine; Admitting Provider Internal Medicine; Emergency Provider Emergency Medicine; PCP Family Medicine; Visit Provider Internal Medicine
DX: O99.891 Other specified diseases and conditions complicating pregnancy (principal); N20.1 Calculus of ureter; N13.4 Hydroureter; N13.30 Unspecified hydronephrosis; Z3A.30 30 weeks gestation of pregnancy; D64.9 Anemia, unspecified; D72.829 Elevated white blood cell count, unspecified; R39.15 Urgency of urination; R11.0 Nausea; R11.10 Vomiting, unspecified; R68.83 Chills (without fever); Z87.59 Personal history of other complications of pregnancy, childbirth and the puerperium
CPT/HCPCS: 36415; 59025; 74176; 80048; 80076; 81001; 81003; 82365; 83690; 85025; 87086; 96361; 96365; 96375; 96376; 99284; 99285; A9270; G0378; J0696; J1171; J2270; J2405; J2765; J7030

== ENCOUNTER 2025-02-06 10:17 | Outpatient (CLI) | payer OTHER, SELFPAY | END 2025-02-06 10:18 | disposition home or self-care (01) | LOC: NFLDREF 02-08 21:02 | PROVIDERS: PCP Family Medicine; Referring Provider Family Medicine; Visit Provider Advanced Practice Midwife | DX: Z34.93 Encounter for supervision of normal pregnancy, unspecified, third trimester (principal); Z3A.33 33 weeks gestation of pregnancy | CPT/HCPCS: 82728 ==

== ENCOUNTER 2025-02-27 10:52 | Outpatient (CLI) | payer OTHER, SELFPAY ==
[2025-02-28 09:52] LABS: Strep B DNA Probe Negative (Negative)
[2025-02-28 10:38] LABS: Strep B Susceptibility Needed? No
== END 2025-02-27 10:53 | disposition home or self-care (01) ==
LOC: NFLDREF 10:53
PROVIDERS: PCP Family Medicine; Visit Provider Advanced Practice Midwife
DX: Z34.93 Encounter for supervision of normal pregnancy, unspecified, third trimester (principal); Z3A.36 36 weeks gestation of pregnancy
CPT/HCPCS: 87081; 87653

== ENCOUNTER 2025-03-13 08:35 | Inpatient (IN) | payer OTHER, SELFPAY ==
[2025-03-13] VITALS (23 sets, daily range): BP systolic 105–142; BP diastolic 55–80; PULSE 61–81; RESP 15–18; TEMP 36.4–37.1; O2SAT 96–99; BMI 22.4
--- NOTE | 2025-03-13 08:34 | W.PM.LDBA ---
Subjective History of Present Illness Date Seen: 03/13/25 Narrative: Patient is being admitted to Labor and Delivery for active labor. She is a 34 year old at 38 4/7 weeks gestation. Her full history and physical was dictated by Pat HENRDICKSON on 03/06/2025. Please see this for details. Specific Issues/Plans : [facility] H[facility]P completed by EMEKA Schmitt on 03/06/2025 *Has anxiety about tearing and possible missed tear with last , prefers very thorough exam after #Hx Vacuum assisted delivery with 1st #Hx fecal incontinence after 3rd but believes it is related to vacuum with first. Has done PT but might want to return if symptoms resume this . # BMI 18.4 at NOB # Failed 1hr GTT 3hr GTT: passed all values # Anemia. Hbg 10.7. Iron supplement started at 28wks. Stopped for a few weeks following stone, restarted at 33 weeks, hgb 10.8 #kidney stones seen in triage 01/15, Feels this is RESOLVED see US report Admitted for management for <24 hours # ?UTI- started on Macrobid 01/15, stopped after 2 doses Flu/Covid: Declined 09/10/2024 Tdap: RSV: [facility] for [facility] completed 09/10/2024 and faxed Records Received: OB - Problem Based A/P Additional Plan (1) Pain during labor: Status: Acute (2) Spontaneous onset of labor: Status: Acute (3) Anemia affecting : Status: Acute (4) : Problem details: -will continue with labor and delivery monitoring status while in hospital Status: Acute Plan ASSESSMENT:?? 34 at 38 4/7 weeks gestation?? complicated by:??Anemia and kidney stones Labor type: Spontaneous, Active labor?? Category 1 FHR pattern.??? Labor complicated by: none?? GBS negative ?? PLAN:?? 1. Routine intrapartum cares as ordered. Continue with expectant management?? 2. Monitoring per policy, intermittent?? 3. Planning unmedicated . Desires water . Consent signed. Hep C negative. Candidate for analgesia of choice.??? 4. Patient encouraged to reposition and ambulate to promote physiologic labor and .?? 5. Anticipate ? OB Exam Physical Exam Vital signs: Pulse BP Pulse Ox 76 105/64 99 03/13/25 08:10 03/13/25 08:10 03/13/25 08:08 Narrative: Vitals Reviewed Constitutional:? Alert and oriented x3 HEENT:? Normocephalic, atraumatic Neck:? Supple Lungs:? Clear to auscultation bilaterally Heart:? Regular rate and rhythm, no murmur, rub or gallop Abdomen:? Soft, nontender, and gravid. Vertex by Casey's, confirmed with cervical exam. Extremities:? No edema or erythema Cervix: 6 cm/90%/0 station/vertex with palpable sutures NST: 135 bpm/moderate variability/accelerations present/decelerations absent/contractions q 5 min
--- NOTE | 2025-03-13 10:51 | W.PM.OBVAGDE ---
OB Procedure Vag Delivery Mother Details Mother Details: The patient is a 34 year-old, 4, now Para 4004, admitted on 03/13/25 at 38 4/7weeks gestation. Admission Date: 03/13/25 Additional Details Amniotic Membrane Status: SROM Amniotic Membrane Rupture Date: 03/13/25 Amniotic Membrane Rupture Time: 10:12 Amniotic Membrane Fluid Description: Clear Analgesia/Anesthesia Type: None Waterbirth: Yes Pitcoin: No Intrapartal Events: None Labor Onset: 06:00 Complete: 10:07 Pushin:07 Heart: heart tones during second stage were heard once via doppler 120s-150s Delivery Details Delivery Date: 03/13/25 Delivery Time: 10:14 Route of delivery: Gender: Female Viability: Alive; Heart Rate Present Position at Delivery: OA Delivery Details: Patient was admitted for spontaneous labor and progressed normally.SROM noted at 1012 with clear fluid. Patient was complete at 1007 and pushing at 1007. of a viable female at 1014 in semifowlers in the tub. Vertex delivered OA. Double nuchal cord that was easily slipped. No shoulder dystocia. Waited after head was out for the next contraction to deliver the shoulders. Body delivered easily and without incident. Infant passed to mothers abdomen with a vigorous cry. Cord was clamped and cut at > 5 minutes. APGARS were 8 at one minute and 9 at five minutes respectively. Mouth was bulb suctioned. Intact placenta with a 3 vessel cord delivered spontaneously at 1026. Fundus firm. Perineum intact.QBL 77cc. Mother and baby stable; mother plans to breastfeed. Infant weight pending.? ? 1 Minute Interval Total Score: 8 5 Minute Interval Total Score: 9 Additional Details Shoulder Dystocia: No Placenta Delivery Time: 10:26 Placental Delivery Description: Spontaneous Procedure Done: Global Blood Loss: 77 Laceration: None Episiotomy Description: None Blood Loss Measurement Type: QBL Bakri Used: No Sponge/Need Count Correct: Yes Cord Vessel Description: 3 Vessels, Nuchal Cord (x2), Reduced and Clamped/Cut Event Summary Status: Mother and were stable after delivery. Disposition: floor
[2025-03-13] MEDS: IBUPROFEN 600 MG TABLET PO ×2 (12:55→21:16)
[2025-03-14 00:25] VITALS: BP 128/75; PULSE 64; RESP 16; TEMP 36.6; O2SAT 95
[2025-03-14 05:13] VITALS: BP 108/73; PULSE 66; RESP 16; TEMP 36.4; O2SAT 96
[2025-03-14] MEDS: IBUPROFEN 600 MG TABLET PO (05:32)
--- NOTE | 2025-03-14 08:29 | P.DS_ITS ---
DS: Providers Provider Date Seen: 03/14/25 Date of admission: 03/13/25 08:35 Primary care physician: Not a Local Provider Admitting Clinician: Gretchen Powers CNM Attending Physician on discharge: Sonya Sebastian CNM DS: Diagnosis Discharge Diagnosis (1) care and examination immediately after delivery: Status: Acute (2) Lactating mother: Status: Acute Exam Narrative: Exam Narrative: GENERAL APPEARANCE:? normal affect, alert, no distress MOOD:? appropriate CHEST:? clear to auscultation HEART:? regular rate and rhythm ABDOMEN:? soft, non-tender the uterine fundus is 2 below Umbilicus, Midline and is appropriate for the stage of recovery. PERINEUM:? mild edema of the perineum. EXTREMITIES:? normal and no edema Const: Vital Signs, click to edit/add: Vital Signs - 24 hr 03/13/25 10:28 03/13/25 10:28 03/13/25 10:44 Temperature Pulse Rate 73 67 Pulse Rate [Pulse Oximeter] Respiratory Rate 18 Blood Pressure 134/80 142/64 H Blood Pressure [Ri ght Arm] [facility] 03/[facility] 10:44 03/13/25 10:47 03/13/25 10:48 Temperature Pulse Rate 64 Pulse Rate [Pulse Oximeter] Respiratory Rate 18 18 Blood Pressure 134/65 Blood Pressure [Ri ght Arm] Pulse Oximetry [facility] 03/13/25 10:57 03/13/25 10:58 03/13/25 11:01 Temperature 97.6 F Pulse Rate 74 Pulse Rate [Pulse Oximeter] Respiratory Rate 18 16 Blood Pressure 117/72 Blood Pressure [Ri ght Arm] Pulse Oximetry [facility] 03/13/25 11:12 03/13/25 11:13 03/13/25 11:27 Temperature Pulse Rate 66 Pulse Rate [Pulse Oximeter] Respiratory Rate 18 18 Blood Pressure 113/67 Blood Pressure [Ri ght Arm] Pulse Oximetry [facility] 03/13/25 11:28 03/13/25 11:42 03/13/25 11:43 Temperature Pulse Rate 63 62 Pulse Rate [Pulse Oximeter] Respiratory Rate 18 Blood Pressure 113/70 119/73 Blood Pressure [Ri ght Arm] Pulse Oximetry [facility] 03/13/25 11:43 03/13/25 12:01 03/13/25 12:02 Temperature 98.8 F 97.8 F Pulse Rate 64 Pulse Rate [Pulse Oximeter] Respiratory Rate 16 18 Blood Pressure 136/78 Blood Pressure [Ri ght Arm] Pulse Oximetry 98 Oxygen Delivery Me thod 03/13/25 12:13 03/13/25 12:13 03/13/25 12:27 Temperature Pulse Rate 66 Pulse Rate [Pulse Oximeter] Respiratory Rate 18 18 Blood Pressure 112/55 L Blood Pressure [Ri ght Arm] Pulse Oximetry Oxygen Delivery Me thod 03/13/25 12:28 03/13/25 12:45 03/13/25 15:36 Temperature 97.8 F 98.5 F Pulse Rate 64 Pulse Rate [Pulse Oximeter] 78 Respiratory Rate 15 Blood Pressure 132/76 Blood Pressure [Ri ght Arm] 113/74 Pulse Oximetry 96 Oxygen Delivery Me thod Room Air 03/13/25 21:31 03/14/25 00:25 03/14/25 05:13 Temperature 98.0 F 97.9 F 97.5 F L Pulse Rate Pulse Rate [Pulse Oximeter] 81 64 66 Respiratory Rate 16 16 16 Blood Pressure Blood Pressure [Ri ght Arm] 110/75 128/75 108/73 Pulse Oximetry 96 95 96 Oxygen Delivery Me thod Room Air Room Air Room Air Documenting provider has reviewed patient's vital signs: yes OB - DS: Summary Hospital Course Hospital Course: Daniela is a 34 y.o. G 4 P 4 who was admitted to [facility] for spontaneous onset of labor. ?She had a NVD that was uncomplicated. The patient feels well. ?The pain is well controlled with current medications. ?She has no new complaints. ?She is breast feeding and reports things are going well. the patient has done well.? Vitals have been stable.? She has remained afebrile.? Has a good appetite, is tolerating a general diet. ?She is voiding without difficulty.? She is passing gas and has not had a bowel movement.? She is ambulating and denies any dizziness.? Has small amount of rubra lochia. Problems: None Discharge home with baby.? Follow up in 2 weeks and 6 weeks.? , may see if needed? Hgb 10.1. ?? For pain control of perineum, breast and pelvic pain, take 600 mg Ibuprofen every 6 hours as needed by mouth or 1000 mg acetaminophen (Tylenol) every 6 hours by mouth as needed. You can alternate these so you are taking something every 3 hours as needed. A heating pad can also be used for your abdomen or breasts. You may also take docusate sodium up to twice daily to soften your stools and help to prevent constipation. You may wean off of it when your stools return to normal.? Peripartum Data delivery method: Vaginal Stout Infant Gender: Female Infant Discharge Plan: Home Status at Discharge Functional status at discharge: independent ambulation Overall status at discharge: patient is progressing back to baseline Time Spent with Patient Time attestation: Total time spent providing and/or coordinating discharge services: Time spent: Less than 30 minutes Discharge Plan Discharge Disposition: Home, Self-Care Date of Admission: 03/13/25 08:35 Attending Provider on Discharge: Sonya Sebastian Primary Care Provider: Provider,Not a Local Condition: Stable Anticipated Discharge Date/Time: 03/14/25 12:00 Discharge Medications: New acetaminophen 500 mg Tablet 1,000 mg PO Q6H PRNQty: 0 0RF docusate sodium 100 mg Capsule 100 mg PO DAILY Qty: 30 0RF ibuprofen 600 mg Tablet 600 mg PO Q6H PRNQty: 60 0RF Continued carica papaya Tablet,Chewable 1 tab PO BID PRN PNV 119-iron fum-folic acid 29 mg iron- 1 mg tablet 1 tab PO DAILY ferrous sulfate [Iron (ferrous sulfate)] 1 tab PO .Twice weekly Discharge Orders: Discharge Order (Routine); Ordered 03/14/25 Ordered By: Sonya Sebastian Patient Education: OB Over the Counter Medication Information, OB Vaginal/Breast Feeding Additional Instructions: Discharge instructions were reviewed with the patient including signs and symptoms of infection and home going medications Nothing vaginally for 6 weeks: no tampons or intercourse Off Work or School for 6 weeks 2-week visit: discuss infant feeding concerns, review control options and screen for anxiety/depression. 6-week visit for an annual exam. consultation services are available to all mothers and babies for the first year after delivery.? To make an appointment, please call [phone]. Activity Level: Activity as Tolerated Discharge Diet: Regular Follow Up Appointments: [facility] [Provider Group] Forms: MyHealth Info Instructions
[2025-03-14 09:09] VITALS: BP 117/78; PULSE 74; RESP 16; TEMP 36.6; O2SAT 95
[2025-03-14] MEDS: DOCUSATE SODIUM 100 MG CAPSULE PO (09:32)
[2025-03-14 10:36] LABS: Hemoglobin* 10.1 gm/dL (12.0-16.0)
== END 2025-03-14 17:30 | disposition home or self-care (01) | DRG 807 ==
LOC: OB OUT 08:36 → OB 08:36
PROVIDERS: Admitting Provider Midwife; Visit Provider Midwife
DX: O99.02 Anemia complicating childbirth (principal); Z37.0 Single live birth; D64.9 Anemia, unspecified; Z87.442 Personal history of urinary calculi; Z3A.38 38 weeks gestation of pregnancy
CPT/HCPCS: 36415; 85018; 86592; A9270